=== PATIENT | male | born 1950 | race Caucasian/White ===

== ENCOUNTER 2020-08-18 14:01 | Observation (INO) ==
[2020-08-18] MEDS ORDERED: IOPAMIDOL 100 ML BOTTLE IV ONE (14:02)
[2020-08-18] MEDS ORDERED: 0.9 % SODIUM CHLORIDE 1,000 ML IV ONE (14:05)
[2020-08-18] MEDS ORDERED: ONDANSETRON 4 MG/2 ML VIAL IV ONE ×2 (14:42→17:02)
[2020-08-18] MEDS ORDERED: morphine 2 MG/ML VIAL IV PRN ×2 (14:42→17:02)
--- NOTE | 2020-08-18 14:45 | Emergency Department Note ---
Abdominal Pain HPI General Chief Complaint: Abdominal Pain Stated Complaint: bloody diarrhea Time Seen by Provider: 08/18/20 14:05 Source: patient, RN notes reviewed and old records reviewed Mode of arrival: ambulatory Limitations: no limitations History of Present Illness HPI Narrative: Narrative: 70-year-old male arrives from the urgent care care complaining of lower abdominal pain cramping for a couple of days started off with black tarry stools and now is having black diarrhea. He was heme positive on rectal exam at the urgent care and was sent here for further care and evaluation. He denies dizziness weakness lightheadedness he denies hematemesis or coffee-ground emesis he denies hematuria or dysuria. No bright red blood per rectum MD Complaint: abdominal pain Onset (ago): day(s) Consistency: intermittent Location: LLQ and RLQ Severity: moderate Quality: cramping Radiation: none Migration to: no migration Improves with: bowel movement Worsens with: eating Context: history of similar episodes Associated symptoms: Reports nausea, diarrhea, hematochezia and melena; Denies vomiting, fever, chills, constipation, dysuria, hematemesis, hematuria, anorexia and syncope Treatments prior to arrival: other Related Data Home Medications Medication Instructions Recorded Confirmed prostate medication PO QHS 08/18/20 08/18/20 simvastatin 5 mg tablet 5 mg PO QDAY 08/18/20 08/18/20 Allergies Allergy/AdvReac Type Severity Reaction Status Date / Time cephalexin [From Keflex] Allergy unknown Verified 08/18/20 13:13 metoprolol AdvReac unk Verified 08/18/20 13:13 tramadol AdvReac Unknown Verified 08/18/20 13:13 Review of Systems ROS ROS Narrative: Narrative: All systems ED: reviewed and negative except as stated. [facility] Narrative Patient History Narrative: Narrative: Medical/Surgical/Family History All Active Problems (Updated 08/18/20 @ 16:34 by Luis Fernando Mora MD) GIB (gastrointestinal bleeding) (Acute) Abdominal pain (Acute) Melena (Acute) Bloody stools (Acute) Medical History Abdominal pain Bloody stools Melena Social History Smoking Status: Never smoker Exam Narrative Narrative: Narrative: General Limitations: no limitations Eye Eye: Present normal appearance, PERRL and EOMI; Absent scleral icterus and conjunctival injection ENT ENT: Present normal oropharynx and mucous membranes moist Neck Neck: Present trachea midline; Absent lymphadenopathy and thyromegaly Chest Chest: Present symmetric chest wall rise Respiratory Respiratory: Present normal lung sounds bilaterally; Absent respiratory dist ress, wheezes, stridor, accessory muscle use and prolonged expiratory phase Cardiovascular Cardiovascular: Present regular rate and normal rhythm; Absent systolic murmur and diastolic murmur Adbominal Abdominal: Present soft; Absent distention, tenderness, guarding, rebound, rigidity, organomegaly and mass Extremities Extremities: Absent pedal edema, pretibial edema and calf tenderness Back Back: Absent CVA tenderness (R), CVA tenderness (L) and spinous process tenderness Neurological Neurological: Present alert and oriented X3 Psychiatric Psychiatric: Present normal affect and normal mood Skin Skin: Present warm (WNL) and dry Course Vital Signs Vital signs: Vital Signs Temperature 98.4 F 08/18/20 14:02 Pulse Rate 75 08/18/20 14:02 Respiratory Rate 16 08/18/20 14:02 Blood Pressure 166/96 08/18/20 14:02 Pulse Oximetry (%) 97 08/18/20 14:02 Temperature 98.4 F 08/18/20 14:02 Pulse Rate 78 08/18/20 16:38 Respiratory Rate 20 08/18/20 14:48 Blood Pressure 150/96 08/18/20 15:47 Pulse Oximetry (%) 95 08/18/20 16:38 [facility] MDM Narrative Medical decision making narrative: Narrative: 70-year-old male with GI bleed stable H&H inflammatory changes to the colon on CT scan. Discussed patient with Dr. Long who graciously agreed to do a colonoscopy on the patient I discussed patient Dr. Ledesma graciously agreed to admission and care. Medical Records Medical records reviewed: Yes I reviewed the patient's medical records. Lab Data Lab results reviewed: Yes I reviewed the patient's lab results. Result diagrams: 08/18/20 14:25 08/18/20 14:25 Labs: Lab Results 08/18/20 08/18/20 08/18/20 Range/Units 14:25 14:25 14:25 WBC 10.8 (4.5-11.0) K/mcL RBC 5.02 (4.50-5.90) M/mcL Hgb 15.5 (13.5-16.5) g/dL Hct 46.2 (41.0-55.0) % MCV 92.0 (80.0-100.0) fL MCH 30.9 (26.0-34.0) pg MCHC 33.5 (31.0-36.0) g/dL RDW 13.8 (11.5-14.5) % Plt Count 194 (140-440) K/mcL MPV 9.2 (7.4-10.4) fL Neut % (Auto) 72.4 (38.0-78.0) % Lymph % (Auto) 18.7 (15.0-49.0) % Wake % (Auto) 7.5 (1.0-12.0) % Eos % (Auto) 1.1 (0.0-7.0) % Baso % (Auto) 0.3 (0.0-2.0) % Lymph # (Auto) 2.02 (1.50-4.80) K/mcL Wake # (Auto) 0.81 (0.10-0.90) K/mcL Eos # (Auto) 0.12 (0.00-0.70) K/mcL Baso # (Auto) 0.03 (0.00-0.20) K/mcL Absolute Neutrophils 7.83 (1.80-8.00) K/mcL PT 13.5 (11.9-14.5) sec INR 1.0 (0.9-1.1) Sodium 136 (133-145) mmol/L Potassium 3.9 (3.3-5.1) mmol/L Chloride 102 (96-108) mmol/L Carbon Dioxide 22 (22-30) mmol/L Anion Gap 12.0 (8.0-16.0) BUN 10 (8-23) mg/dL Creatinine 1.0 (0.7-1.2) mg/dL POC Creatinine (0.6-1.2) mg/dL GFR Calculation 75 Glucose 90 (70-105) mg/dL Calcium 9.1 (8.6-10.4) mg/dL Total Bilirubin 0.6 (0.1-1.0) mg/dL AST 18 (<40) U/L ALT 14 (<40) U/L Alkaline Phosphatase 70 (39-117) U/L Total Protein 7.3 (5.9-8.4) gm/dL Albumin 4.2 (3.2-5.2) gm/dL Globulin 3.1 (2.2-3.7) gm/dL Albumin/Globulin Ratio 1.4 (1.0-2.3) Lipase 21 (7-60) U/L / Range/Units 15:39 WBC (4.5-11.0) K/mcL RBC (4.50-5.90) M/mcL Hgb (13.5-16.5) g/dL Hct (41.0-55.0) % MCV (80.0-100.0) fL MCH (26.0-34.0) pg MCHC (31.0-36.0) g/dL RDW (11.5-14.5) % Plt Count (140-440) K/mcL MPV (7.4-10.4) fL Neut % (Auto) (38.0-78.0) % Lymph % (Auto) (15.0-49.0) % Wake % (Auto) (1.0-12.0) % Eos % (Auto) (0.0-7.0) % Baso % (Auto) (0.0-2.0) % Lymph # (Auto) (1.50-4.80) K/mcL Wake # (Auto) (0.10-0.90) K/mcL Eos # (Auto) (0.00-0.70) K/mcL Baso # (Auto) (0.00-0.20) K/mcL Absolute Neutrophils (1.80-8.00) K/mcL PT (11.9-14.5) sec INR (0.9-1.1) Sodium (133-145) mmol/L Potassium (3.3-5.1) mmol/L Chloride (96-108) mmol/L Carbon Dioxide (22-30) mmol/L Anion Gap (8.0-16.0) BUN (8-23) mg/dL Creatinine (0.7-1.2) mg/dL POC Creatinine 1.2 (0.6-1.2) mg/dL GFR Calculation Glucose (70-105) mg/dL Calcium (8.6-10.4) mg/dL Total Bilirubin (0.1-1.0) mg/dL AST (<40) U/L ALT (<40) U/L Alkaline Phosphatase (39-117) U/L Total Protein (5.9-8.4) gm/dL Albumin (3.2-5.2) gm/dL Globulin (2.2-3.7) gm/dL Albumin/Globulin Ratio (1.0-2.3) Lipase (7-60) U/L Radiology Data Radiology results reviewed: Yes I reviewed the patient's radiology results. Radiology results narrative: Inflammatory changes to the colon on CT scan EKG Data EKG #1: EKG attestation: Yes I reviewed and interpreted this EKG. EKG shows normal: sinus rhythm Rate: normal (77) Rhythm: NSR Heart block present: None ST segment elevation in: None ST segment depression in: None Q waves: None T wave inversions noted in: None Hyperacute T waves: None QTc: normal QRS morphology: Present normal Ectopy: PVC Interpretation: nonspecific ST-T wave changes Pulse Oximetry Data Pulse Ox %: 96 Interpretation: 96% on room air within normal limits Discharge Plan Patient/Caregiver Discharge Instructions Pt seen by AIRCRAFT MECHANIC/PA only: No Clinical Impression: GIB (gastrointestinal bleeding) Patient Disposition: Xfer As Inpt ([facility]) Follow up with: Ghanshyam Evans ARNP [Primary Care Provider] - Prescriptions: No Action simvastatin 5 mg tablet 5 mg PO QDAY RF: 0 prostate medication PO QHS RF: 0
[2020-08-18 15:06] LABS: Basophils # (Auto) 0.03 K/mcL (0.00-0.20); Basophils % (Auto) 0.3 % (0.0-2.0); Eosinophils # (Auto) 0.12 K/mcL (0.00-0.70); Eosinophils % (Auto) 1.1 % (0.0-7.0); Hematocrit 46.2 % (41.0-55.0); Hemoglobin 15.5 g/dL (13.5-16.5); Lymphocytes # (Auto) 2.02 K/mcL (1.50-4.80); Lymphocytes % (Auto) 18.7 % (15.0-49.0); Mean Corpuscular HGB Conc 33.5 g/dL (31.0-36.0); Mean Platelet Volume 9.2 fL (7.4-10.4); Monocytes # (Auto) 0.81 K/mcL (0.10-0.90); Monocytes % (Auto) 7.5 % (1.0-12.0); Neutrophils % (Auto) 72.4 % (38.0-78.0); Platelet Count 194 K/mcL (140-440); RBC 5.02 M/mcL (4.50-5.90); Red Cell Distribution Width 13.8 % (11.5-14.5); WBC 10.8 K/mcL (4.5-11.0)
[2020-08-18 15:22] LABS: ALT/SGPT 14 U/L (<40); AST/SGOT 18 U/L (<40); Albumin 4.2 gm/dL (3.2-5.2); Albumin/Globulin Ratio 1.4 (1.0-2.3); Alkaline Phosphatase 70 U/L (39-117); Bilirubin,Total 0.6 mg/dL (0.1-1.0); Blood Urea Nitrogen 10 mg/dL (8-23); Calcium 9.1 mg/dL (8.6-10.4); Carbon Dioxide 22 mmol/L (22-30); Chloride 102 mmol/L (96-108); Globulin 3.1 gm/dL (2.2-3.7); Glomerular Filtration Rate 75; Glucose 90 mg/dL (70-105)
[2020-08-18 15:23] LABS: Prothrombin Time 13.5 sec (11.9-14.5)
[2020-08-18 15:44] LABS: POC Creatinine 1.2 mg/dL (0.6-1.2)
--- NOTE | 2020-08-18 16:39 | Cat Scan Report ---
INDICATION: Abd Pain with GIB COMPARISON: None. TECHNIQUE: Axial images were obtained through the abdomen and pelvis. Sagittally and coronally reformatted images. 80 mL Isovue 370 injected intravenously. Oral contrast material was not given FINDINGS: Lung bases:Negative. No pulmonary parenchymal nodule. No pleural fluid or pericardial fluid Liver:Negative. 10 mm low-density lesion in the inferior right lobe of the liver is probably a cyst. No other focal intrahepatic mass. No focal abnormality. Liver contour is smooth. No evidence for cirrhosis Gallbladder, bilary:Probable cholelithiasis. No gallbladder wall thickening or pericholecystic fluid. No dilated bile ducts Spleen:No significant splenomegaly. Normal enhancement of splenic and portal veins Pancreas:No pancreatic mass. The pancreatic duct is dilated to 6 mm in the pancreatic head. No obstructing lesion is identified. No focal intraparenchymal abnormality. No peripancreatic inflammatory change. Adrenal glands:Negative Kidneys, ureters, bladder:Previous left nephrectomy. There is no evidence for recurrent mass 18 mm solid mass in the inferior pole of the right kidney. 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 There is no detectable right renal vein tumor thrombus. No right renal calculi. No hydronephrosis. There is no hydroureter. No ureteral stone Urinary bladder is distended. No bladder calculus Gastrointestinal: Colon is diffusely abnormal. There is wall thickening and mucosal edema. There are multiple diverticuli without evidence for diverticulitis. There is an appearance consistent with cobblestoning. This is nonspecific. Findings may be due to inflammatory bowel disease. Terminal ileum is unremarkable. Infectious colitis is more likely in this 70-year-old patient. Disease is such as graft host disease and angioedema are possible. Small bowel is negative. No mechanical small bowel obstruction. Stomach and duodenum are unremarkable Appendix: The appendix is not visualized. No evidence for appendicitis Vascular: There is calcification of the abdominal aorta. No abdominal aortic aneurysm. Superior mesenteric artery and celiac trunk are normal. Normal opacification of the inferior mesenteric artery. Common iliac arteries are dilated and tortuous. Right common iliac artery and left common iliac artery measured 2.0 cm in cross-sectional diameter. External iliac arteries and common femoral arteries are patent. Lymphatic:Nonspecific para-aortic retroperitoneal lymph nodes. No pathologic pelvic or inguinal adenopathy. Mesentery, peritoneum: No free intraperitoneal fluid. No mesenteric or retroperitoneal mass. There is no intra-abdominal abscess. No pneumoperitoneum. Reproductive:Prostate appears enlarged. Musculoskeletal:Severe degenerative disc disease at L2-L3. Sacrum and pelvis are negative. Hips are negative. No abdominal wall or inguinal hernia IMPRESSION: 1. Diffusely abnormal colon with wall thickening and mucosal edema. Findings may be due to inflammatory bowel disease but infectious colitis is considered more likely 2. Previous left nephrectomy. 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 Atherosclerotic disease 4. Dilated pancreatic duct. Etiology is not certain. A pancreatic head mass is not identified. Definite ampullary mass is not noted. If there are laboratory studies consistent with pancreatic duct obstruction endoscopy may be helpful. 5. Possible cholelithiasis. No dilated bile ducts The exam was performed using radiation dose optimization techniques including, but not limited to, automated exposure control, adjustment of the mA and/or kV according to patient size and use of iterative reconstruction technique. Interpreted and Authenticated by: Tima Elizabeth 08/18/20
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
[2020-08-18] MEDS ORDERED: 0.9 % SODIUM CHLORIDE 250 ML IV SCH (18:30)
[2020-08-18] MEDS ORDERED: LEVOFLOXACIN 750 MG/150 ML BAG IV SCH (18:30)
[2020-08-18] MEDS: metroNIDAZOLE 500 MG/100 ML BAG IV SCH (23:42)
[2020-08-19] MEDS: PANTOPRAZOLE 40 MG VIAL IV SCH ×3 (00:32→16:04)
[2020-08-19] MEDS: BUDESONIDE 3 MG CAP.XL.24H PO SCH ×2 (00:33→07:41)
[2020-08-19] MEDS: LISINOPRIL 10 MG TABLET PO SCH ×2 (00:34→21:20)
[2020-08-19] MEDS: metroNIDAZOLE 500 MG/100 ML BAG IV SCH ×3 (01:24→13:41)
[2020-08-19 06:39] LABS: Basophils # (Auto) 0.02 K/mcL (0.00-0.20); Basophils % (Auto) 0.2 % (0.0-2.0); Eosinophils # (Auto) 0.17 K/mcL (0.00-0.70); Eosinophils % (Auto) 1.8 % (0.0-7.0); Hematocrit 40.7 % (41.0-55.0); Hemoglobin 13.6 g/dL (13.5-16.5); Lymphocytes # (Auto) 1.35 K/mcL (1.50-4.80); Mean Cell Volume 92.5 fL (80.0-100.0); Mean Corpuscular HGB Conc 33.4 g/dL (31.0-36.0); Mean Platelet Volume 9.2 fL (7.4-10.4); Monocytes # (Auto) 0.78 K/mcL (0.10-0.90); Monocytes % (Auto) 8.1 % (1.0-12.0); Neutrophils % (Auto) 75.9 % (38.0-78.0); Platelet Count 170 K/mcL (140-440); Red Cell Distribution Width 13.9 % (11.5-14.5); WBC 9.7 K/mcL (4.5-11.0)
[2020-08-19] MEDS: POLYETHYLENE GLYCOL 3350 17 GM PACKET PO SCH ×6 (07:53→18:09)
[2020-08-19] MEDS: LEVOFLOXACIN 750 MG/150 ML BAG IV SCH (12:07)
--- NOTE | 2020-08-19 12:33 | General Surgery Progress Note ---
SUBJECTIVE Subjective Patient information: Note initiated : 08/19/20 at 12:29 pm Service Date, if different from initiated Date: [] Patient: Yohan Bearden 70 y/o M admitted on 08/18/20 for Bloody Diarrhea. Chief Complaint: [] Principal diagnosis: Rectal bleeding and melena Interval history: Patient states that he feels much better. He has less abdominal pain and bloating. There has been significant decrease in bleeding. He has not had further melena. Hemoglobin is stable at 13.6. White blood count is 9.7. Constitutional Vitals: Vital Signs Temp Pulse Resp BP Pulse Ox 98.8 F 74 18 121/75 95 08/19/20 12:00 08/19/20 12:00 08/19/20 12:00 08/19/20 12:00 08/19/20 12:00 Period Temp Pulse Resp BP Sys/Akins Pulse Ox Last 24 Hr 98.1 F-99.8 F 74-90 16-20 116-181/75-114 95-99 Intake and Output 08/18/20 08/19/20 08/19/20 21:59 05:59 13:59 Intake Total 1150 580 100 Output Total 800 400 Balance 1150 -220 -300 Weight 150 lb 11.2 oz Intake & Output: Intake & Output 08/18/20 08/19/20 08/19/20 21:59 05:59 13:59 Intake Total 1150 580 100 Output Total 800 400 Balance 1150 -220 -300 Weight 150 lb 11.2 oz Intake: IV 1150 100 100 Sodium Chloride 0.9% 1,000 ml @ 1000 Wide Open IV BOLUS ONE Rx#: [id number] Oral 480 Output: Void Amount 700 400 Stool 100 Other: Urine Appearance Clear Clear Clear Urine Color Bright Yellow Bright Yellow Dark Yellow Stool Size Small Small Stool Color Dark Red Blood Dark Red Blood Stool Consistency Loose # Voids 1 # Bowel Movements 1 Head Head exam: Present atraumatic, normal inspection and normocephalic Eye Eye exam: Present EOMI Pupils: Present normal accommodation and PERRL ENT ENT exam: Present mucous membranes moist, normal exam and normal oropharynx Neck Neck exam: Present full ROM; Absent lymphadenopathy and tenderness Respiratory Respiratory exam: Present normal respiratory exam and CTAB; Absent rales, rhonchi and wheezes Cardiovascular Cardiovascular exam: Present normal rate and rhythm, RRR, +S1 and +S2; Absent JVD and tachycardia GI/Abdominal GI/Abdominal exam: Present soft and distended (Mild distention with minimal tenderness) Extremities Exam Extremities exam: Present full ROM and neurovascular intact; Absent pedal edema and tenderness Neurological Exam Neurological exam: Present alert, motor sensory deficit, normal gait and oriented X3 Psychiatric Psychiatric exam: Present normal affect and normal mood Skin Skin exam: Present intact; Absent cyanosis, pallor and rash A/P Assessment and plan (1) Gastrointestinal hemorrhage with melena: Status: Acute (2) Acute ischemic colitis: Status: Acute (3) Hypertension: Status: Acute Qualifiers: Hypertension type: essential hypertension Qualified Code(s): I10 - Essential (primary) hypertension Narrative A/P Narrative: Patient is clinically stable. He is undergoing bowel prep for endoscopy tomorrow. Because of the history of significant melena he will also have upper endoscopy as well as colonoscopy. Time Spent With Patient Time: Total time spent is greater than 50% in coordination of care (as documented) at patient's floor/unit and/or counseling patient:
--- NOTE | 2020-08-19 14:10 | XRay Report ---
INDICATION: preop evaluation TECHNIQUE: AP portable upright chest x-ray COMPARISON: None FINDINGS: Lungs:Lungs are negative. No focal pulmonary parenchymal infiltrate or mass Heart, vascular:No significant cardiomegaly. Pulmonary vascularity is normal. No pulmonary edema or pulmonary congestion Mediastinum, amanda:No mediastinal widening. No hilar mass Pleura:No pleural fluid. No pleural-based mass or calcification. Right hemidiaphragm is mildly elevated Skeletal:Nonacute left rib fractures IMPRESSION: No acute abnormality Interpreted and Authenticated by: Tima Elizabeth 08/19/20
--- NOTE | 2020-08-19 17:07 | EKG ---
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 Measurements Intervals [place] Rate: 77 P: 28 NH: 151 QRS: 42 QRSD: 109 T: 7 QT: 400 QTc: 453 Interpretive Statements Sinus rhythm Multiple ventricular premature complexes Baseline wander in lead(s) V2 NONDIAGNOSTIC ST DEPRESSION NO PRIOR TRACING FOR COMPARISON Electronically Signed On 08-19-2020 17:06:36 PDT by Juan Carlos Rao M.D. [place] [place][id number]
[2020-08-19] MEDS ORDERED: metroNIDAZOLE 500 MG/100 ML BAG IV SCH (20:00)
[2020-08-20] MEDS: PANTOPRAZOLE 40 MG VIAL IV SCH ×2 (07:15→17:08)
[2020-08-20 07:52] LABS: Basophils # (Auto) 0.02 K/mcL (0.00-0.20); Basophils % (Auto) 0.3 % (0.0-2.0); Eosinophils % (Auto) 3.1 % (0.0-7.0); Hematocrit 38.6 % (41.0-55.0); Hemoglobin 12.7 g/dL (13.5-16.5); Lymphocytes # (Auto) 1.58 K/mcL (1.50-4.80); Lymphocytes % (Auto) 24.6 % (15.0-49.0); Mean Cell Volume 93.5 fL (80.0-100.0); Mean Corpuscular HGB Conc 32.9 g/dL (31.0-36.0); Mean Platelet Volume 9.2 fL (7.4-10.4); Monocytes # (Auto) 0.58 K/mcL (0.10-0.90); Platelet Count 180 K/mcL (140-440); RBC 4.13 M/mcL (4.50-5.90); Red Cell Distribution Width 13.8 % (11.5-14.5); WBC 6.4 K/mcL (4.5-11.0)
[2020-08-20 08:11] LABS: ALT/SGPT 8 U/L (<40); AST/SGOT 11 U/L (<40); Albumin 3.3 gm/dL (3.2-5.2); Albumin/Globulin Ratio 1.5 (1.0-2.3); Alkaline Phosphatase 48 U/L (39-117); Bilirubin,Direct < 0.2 mg/dL (0-0.3); Bilirubin,Total 0.4 mg/dL (0.1-1.0); Blood Urea Nitrogen 8 mg/dL (8-23); Calcium 8.5 mg/dL (8.6-10.4); Carbon Dioxide 24 mmol/L (22-30); Chloride 108 mmol/L (96-108); Globulin 2.2 gm/dL (2.2-3.7); Glomerular Filtration Rate 75; Glucose 89 mg/dL (70-105); Lactate Dehydrogenase 114 U/L (135-225); Phosphorous 3.4 mg/dL (2.5-4.5); Triglycerides 72 mg/dL (<150); Uric Acid 6.1 mg/dL (2.5-8.0)
[2020-08-20] MEDS: BUDESONIDE 3 MG CAP.XL.24H PO SCH (08:49)
[2020-08-20] MEDS ORDERED: LIDOCAINE HCL/PF 100 MG/5 ML SYRINGE IV ONE (09:09)
[2020-08-20] MEDS ORDERED: PROPOFOL 200 MG/20 ML VIAL IV ONE (09:09)
[2020-08-20] MEDS ORDERED: MIDAZOLAM 5 MG/5 ML VIAL ONE (09:09)
[2020-08-20] MEDS ORDERED: GLYCOPYRROLATE 0.2 MG/ML VIAL IV ONE (09:09)
[2020-08-20] MEDS: LEVOFLOXACIN 750 MG/150 ML BAG IV SCH (10:13)
--- NOTE | 2020-08-20 10:21 | Brief Operative Note ---
Brief Operative Note Date of procedure: 08/20/20 Pre-op diagnosis: rectal bleeding and melena Post-op diagnosis: other (acute erosive gastritiswith superficial ulcersof antrum and body of stomach;diffuse pancolitis) Procedure: egd with biopsies colonoscopy with biopsies Grafts/Implants: No Anesthesia: other Findings: diffuse inflammation of entire stomach with superficial erosions;3 healing ulcerations of antrum without bleeding;normal duodenum diffuse inflammation of entire colon extending to cecum Complications: none Surgeon: Nima Long Specimens Removed/Pathology: other (antral biopsies;segmental colon biopsies from cecum to rectum) Condition: stable Disposition: same day
[2020-08-20] MEDS ORDERED: morphine 2 MG/ML VIAL IV PRN (10:56)
[2020-08-20] MEDS ORDERED: 0.9 % SODIUM CHLORIDE 1,000 ML IV ONE (10:56)
[2020-08-20] MEDS ORDERED: IOPAMIDOL 100 ML BOTTLE IV ONE (10:56)
[2020-08-20] MEDS: SUCRALFATE 1 GM/10 ML ORAL.SUSP PO SCH ×3 (11:31→23:36)
[2020-08-20] MEDS ORDERED: SUCRALFATE 1 GM/10 ML ORAL.SUSP PO SCH (12:00)
[2020-08-20] MEDS ORDERED: LISINOPRIL 10 MG TABLET PO SCH (21:00)
[2020-08-21] MEDS: SUCRALFATE 1 GM/10 ML ORAL.SUSP PO SCH ×2 (04:56→11:36)
[2020-08-21 07:35] LABS: Basophils # (Auto) 0.01 K/mcL (0.00-0.20); Basophils % (Auto) 0.2 % (0.0-2.0); Eosinophils # (Auto) 0.22 K/mcL (0.00-0.70); Eosinophils % (Auto) 3.5 % (0.0-7.0); Hematocrit 37.9 % (41.0-55.0); Hemoglobin 12.5 g/dL (13.5-16.5); Lymphocytes # (Auto) 1.57 K/mcL (1.50-4.80); Lymphocytes % (Auto) 24.7 % (15.0-49.0); Mean Cell Volume 91.8 fL (80.0-100.0); Mean Platelet Volume 9.1 fL (7.4-10.4); Monocytes # (Auto) 0.51 K/mcL (0.10-0.90); Neutrophils % (Auto) 63.6 % (38.0-78.0); Platelet Count 184 K/mcL (140-440); RBC 4.13 M/mcL (4.50-5.90); Red Cell Distribution Width 13.6 % (11.5-14.5); WBC 6.4 K/mcL (4.5-11.0)
[2020-08-21] MEDS: PANTOPRAZOLE 40 MG VIAL IV SCH (08:18)
[2020-08-21] MEDS ORDERED: BUDESONIDE 3 MG CAP.XL.24H PO SCH (09:00)
[2020-08-21] MEDS ORDERED: LEVOFLOXACIN 750 MG/150 ML BAG IV SCH (09:00)
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
--- NOTE | 2020-08-22 12:15 | Surgical Pathology Report ---
Histology Microscopic Diagnosis Specimen A- STOMACH, ANTRUM BIOPSY: --- MILD CHRONIC GASTRITIS WITH INTESTINAL METAPLASIA. --- NO HELICOBACTER SPECIES IDENTIFIED ON ALCIAN YELLOW STAIN (ADEQUATE TECHNICAL CONTROL). --- NO DYSPLASIA OR MALIGNANCY IDENTIFIED. Comments The patient's clinical presentation is noted. The colon biopsies (specimens B, C, D and E) show similar findings of lamina propria hemorrhage. The differential diagnosis includes early hemorrhagic colitis, procedural artifact or changes related to bowel preparation. Clinical and endoscopic correlation is required. Clinical History Bloody diarrhea. Procedural Impression Acute erosive gastritis with superficial ulcer of antrum and body of stomach; diffuse pancolitis. Gross Description Received in formalin labeled antrum biopsy, are three agiurre tissue fragments 0.2 to 0.4 cm. Entirely submitted - one cassette. Microscopic Diagnosis Specimen B- COLON, CECAL BIOPSY: --- COLONIC MUCOSA WITH LAMINA PROPRIA HEMORRHAGE, SEE COMMENT. --- NO ACTIVE INFLAMMATION, GRANULOMATA, DYSPLASIA OR MALIGNANCY IDENTIFIED. Gross Description Received in formalin labeled cecum biopsy, are two aguirre tissue fragments 0.4 and 0.5 cm. Entirely submitted - one cassette. Microscopic Diagnosis Specimen C- COLON, ASCENDING BIOPSY: --- COLONIC MUCOSA WITH LAMINA PROPRIA HEMORRHAGE. --- NO ACTIVE INFLAMMATION, GRANULOMATA, DYSPLASIA OR MALIGNANCY IDENTIFIED. Gross Description Received in formalin labeled ascending biopsy, are three aguirre tissue fragments 0.2 to 0.5 cm. Entirely submitted - one cassette. Microscopic Diagnosis Specimen D- COLON, DESCENDING BIOPSY: --- COLONIC MUCOSA WITH LAMINA PROPRIA HEMORRHAGE. --- NO ACTIVE INFLAMMATION, GRANULOMATA, DYSPLASIA OR MALIGNANCY IDENTIFIED. Gross Description Received in formalin labeled descending biopsy, are three aguirre tissue fragments 0.1 to 0.6 cm. Entirely submitted - one cassette. Microscopic Diagnosis Specimen E- COLON, SIGMOID BIOPSY: --- COLONIC MUCOSA WITH LAMINA PROPRIA HEMORRHAGE. --- NO ACTIVE INFLAMMATION, GRANULOMATA, DYSPLASIA OR MALIGNANCY IDENTIFIED. Gross Description Received in formalin labeled sigmoid biopsy, are two aguirre tissue fragments 0.2 and 0.3 cm. Entirely submitted - one cassette. (SCB:sln) Electronically Signed Jen Akbar MD, FCAP Electronically Signed 08/22/2020 12:14
--- NOTE | 2020-08-27 12:54 | EGD Procedure Note ---
PREOPERATIVE DIAGNOSIS: Melena and acute rectal bleeding. POSTOPERATIVE DIAGNOSIS: Acute erosive gastritis with superficial ulcers of the antrum and body of the stomach and pancolonic inflammation of the colon. PROCEDURE: Esophagogastroduodenoscopy with biopsies and colonoscopy with biopsies. SURGEON: Nima Long M.D. FINDINGS: 1. Diffuse inflammation of the entire stomach with superficial erosions and three healing ulcerations of the antrum without bleeding, normal duodenum. 2. Diffuse inflammation of the entire stomach extending from the rectum to the cecum. DESCRIPTION OF PROCEDURE: Under general anesthesia, the patient turned to the left lateral decubitus position. Time-out procedure was carried out as per protocol. Bite block was placed. Scope was introduced through the bite block into the retropharynx and into the esophagus. The esophagus was normal down to the GE junction. GE junction was normal. There was no web, stricture, ring or inflammation. There were no Ferreira's changes. The gastric fundus was unremarkable; however, gastric body and antrum showed acute moderately severe erosive gastritis with three healing superficial ulcers of the antrum. There was no active bleeding. Pylorus opened appropriately. The duodenum was normal, although there was some old blood in the duodenum. This was black blood. It was irrigated out to the fourth portions and no acute inflammation was noted. Scope was pulled back. Retroflex view was done. This showed the acute erosive changes, but no other pathology. Biopsies of the antrum were taken for routine and LEANN test. The patient tolerated the procedure well. After completion of the upper endoscopy, the patient was repositioned. Digital examination of anus was unremarkable except for a small amount of bright red blood. Scope was introduced. There was inflammation of the rectum and this continued all the way to the cecum. Cecum identified by the opening of the appendix, ileocecal valve, and confluence of the taenia. Biopsies of the cecum were taken and other biopsies were taken segmentally out to the cecum. No acute severe inflammation was noted. The patient tolerated the procedure well. He was awakened, transferred to a bed, and taken to the postanesthetic care unit in stable, satisfactory condition. LCS:lillian Job ID: [id number] Doc ID: [id number] Nima Long M.D.
== END 2020-08-21 14:00 | disposition home or self-care (01) ==
LOC: MEDSUR 14:01 → ED 14:01 → MEDSUR 20:04
PROVIDERS: ADMIT Family Medicine Adult Medicine; ATTEND Family Medicine Adult Medicine